=== PATIENT | female | born 1965 | race Caucasian/White ===

== ENCOUNTER → 2018-05-29 | Outpatient (CLI) | payer OTHER ==
--- NOTE | 2018-05-29 16:24 | CT ---
EXAM DESCRIPTION: Chest w/o Contrast : Computed Tomography. CLINICAL HISTORY: HEMOPTYSIS COMPARISON: None. TECHNIQUE: Spiral-axial scans at 5.0 x 5.0 mm intervals through the lungs and thorax without IV contrast. Please see below.* 2.5 x 5.0 mm lung algorithm axial reconstructions. Coronal and sagittal 2.0 Mm reconstructions. No adverse reactions. Total Exam DLP: 1083.49 mGy-cm. This exam was performed according to our departmental dose-optimization program which includes automated exposure control, adjustment of the mA and/or kV according to patient size and/or use of iterative reconstruction technique; to reduce radiation dose to as low as reasonably achievable (ALARA). Nodule measurements under 10 mm are given as mean value of 3 axes diameters. *Note: Contrast was not given due to history of severe local skin reaction from iodine or suture material. FINDINGS: Lungs and large airways: Subpleural lateral calcifications in the right middle lobe lateral segment, lung window axial series 4, images [id number].. 2 mm solid nodule in the lateral aspect of the horizontal fissure, image 68. Bibasilar pleural parenchymal scarring in the posterior recesses of the lower lobes more on the left. Bilateral focal pleural thickening. Small [id number]-type densities in the anterior right upper lobe abutting the pleura. 3 mm solid nodule subpleural lateral left lower lobe on image 97. No abnormal nodule infiltrate or mass bilaterally.. Pleural spaces: Focal pleural thickening medial left apex and scattered locations of pleural thickening abutting the upper and lower lobes no effusion bilaterally or pneumothorax.. Mediastinum and Deann: Evaluation limited due to lack of IV contrast. No gross soft tissue mass or enlarged lymph nodes. Small mediastinal calcifications. Great vessels and Heart: Evaluation limited due to lack of IV contrast. Minimal brachiocephalic calcification in the aorta. Soft tissues of neck base, axillae, and chest wall: Evaluation limited due to lack of IV contrast. No gross soft tissue mass. Small fatty containing hernia in the midline raphe anterior to the left lobe of the liver on soft tissue axial sequence 2, image 56. The neck of the hernia is 2.1 x 1.3 cm. No bowel organs or fluid in the hernia. Upper abdomen: No fluid or free air in the included peritoneal space. Slight prominence of the left adrenal gland with Hounsfield density -17. Spleen and right adrenal gland unremarkable. Calcification in the lateral right pelvis. Surgical clips in the gallbladder fossa. Osseous structures: Spondylosis at multiple levels of the thoracic spine. No lytic or blastic lesions. IMPRESSION: 1. No abnormal nodules in the lung parenchyma with minimal regions of pleural thickening. Smaller marginated solid nodules are present. With consideration of [facility] Best Practice recommendations following 2017 Fleischner Society guidelines for multiple solid nodules, optional follow-up chest CT scan can be done in 12 month interval. Please see below.*If hemoptysis continues, consider follow-up scan with IV contrast for more sensitive evaluation of the soft tissues of the chest, and/or pulmonology consult. 2. Probable left adrenal adenoma. 3. Midline abdominal wall hernia in the raphe containing abdominal fat only. Please see above discussion. * 2017 Fleischner Society Recommendations for Multiple Solid Lung Nodules Follow-Up base on size (average of long- and short-axis diameters). Use most suspicious nodule for followup. Nodule Size <6 mm Low-Risk Patient: No routine follow-up Nodule Size <6 mm High-Risk Patient: Optional CT at 12 months Electronically signed by: Benito Riggins MD 05/29/2018 4:23 PM [facility]
== END ==
LOC: CT 14:41
PROVIDERS: ATTEND Nurse Practitioner Family
DX: R04.2 Hemoptysis (principal); K46.9 Unspecified abdominal hernia without obstruction or gangrene